=== PATIENT | female | born 1990 | race African-American/Black ===

== ENCOUNTER 2018-07-29 00:15 | Emergency (ER) | payer OTHER ==
[~2018-07-29] VITALS: Ht 170.2 cm; Wt 90.0 kg
[2018-07-29 00:21] VITALS: BP 138/83
--- NOTE | 2018-07-29 00:32 | NUR ---
FIRST CONTACT WITH PT. PT HAD MGLF C/O LEFT ANKLE PAIN, SWELLING NOTED IN TRIAGE. PT STATES SHE IS UNABLE TO WALK. PT'S AOX4. RESPS EVEN AND UNLABORED. FAMILY AT BEDSIDE NOW.
[2018-07-29] MEDS ORDERED: KETOROLAC 30 MG/1 ML ONE (00:40)
--- NOTE | 2018-07-29 00:47 | NUR ---
PATIENT MEDICATED FOR PAIN. ICE PACK APPLIED. XRAY AT BEDSIDE.
[2018-07-29] MEDS ORDERED: KETOROLAC 30 MG/1 ML IM ONE (01:00)
--- NOTE | 2018-07-29 01:56 | NUR ---
PT GIVEN DC INSTRUCTIONS. PT AMB WITH CLUCHES TO DC. PT'S AOX4. RESPS EVEN AND UNLABORED. NO ACUTE DISTRESS AT DC.
== END 2018-07-29 01:57 | disposition home or self-care (01) ==
LOC: ED 01:10
DX: G89.11 Acute pain due to trauma (principal); M25.572 Pain in left ankle and joints of left foot; W18.30XA Fall on same level, unspecified, initial encounter; Y93.89 Activity, other specified; Y92.410 Unspecified street and highway as the place of occurrence of the external cause; Y99.8 Other external cause status
CPT/HCPCS: 29515; 73610; 96372; 99283; J1885